=== PATIENT | male | born 1975 | race Caucasian/White ===

== ENCOUNTER 2022-10-18 13:08 | Emergency (ER) | payer OTHER ==
[2022-10-18 13:23] VITALS: BP 115/80; RESP 18; TEMP 97.7
[2022-10-18 14:15] LABS: Basophils # (A) 0.1 k/uL (0-0.2); Basophils % (A) 1 %; Eosinophils # (A) 0.3 k/uL (0-0.7); Eosinophils % (A) 6 %; HCT 49.6 % (39.0-53.0); HGB 16.3 gm/dL (13.0-17.5); Lymphocytes % (A) 33 %; MCH 26.8 pg (25.0-35.0); MCHC 32.9 g/dL (31.0-37.0); MCV 81.3 fL (80.0-100.0); Mean Platelet Volume 10.1; Monocytes # (A) 0.4 k/uL (0-1.0); Monocytes % (A) 7 %; Neutrophils # (A) 3.2 k/uL (1.3-7.7); Neutrophils % (A) 53 %; Platelet Count 193 k/uL (150-450); RDW 13.8 % (11.5-15.5)
[2022-10-18] MEDS ORDERED: SODIUM CHLORIDE 0.9% 1,000 ML IV ONE (14:55)
--- NOTE | 2022-10-18 14:56 | ED ---
General Adult HPI - General Chief complaint: Alcohol Stated complaint: Leg Cramps Time Seen by Provider: 10/18/22 13:11 Source: patient, EMS, RN notes reviewed, old records reviewed Mode of arrival: EMS Limitations: no limitations - History of Present Illness Initial comments: 46-year-old male presents from [facility] for evaluation of alcohol intoxic ation and leg cramps. Patient is quite intoxicated and unable to give a detailed history with states he's had history of alcoholism and has had alcohol withdrawal seizures in the past. - Related Data Allergies Allergy/AdvReac Type Severity Reaction Status Date / Time No Known Allergies Allergy Verified 10/18/22 13:44 Review of Systems ROS Statement: Those systems with pertinent positive or pertinent negative responses have been documented in the HPI. ROS Other: All systems not noted in ROS Statement are negative. Past Medical History Past Medical History: No Reported History Past Alcohol Use History: Heavy General Exam Limitations: no limitations General appearance: alert, appears intoxicated Head exam: Present: atraumatic, normocephalic Eye exam: Present: normal appearance, PERRL ENT exam: Present: mucous membranes dry Neck exam: Present: normal inspection. Absent: tenderness, meningismus Respiratory exam: Present: normal lung sounds bilaterally. Absent: respiratory distress, wheezes Cardiovascular Exam: Present: regular rate, normal rhythm GI/Abdominal exam: Present: soft. Absent: distended, tenderness, guarding Extremities exam: Present: normal inspection, normal capillary refill. Absent: pedal edema Neurological exam: Present: alert, CN II-XII intact. Absent: oriented X3, motor sensory deficit Psychiatric exam: Present: flat affect Skin exam: Present: warm, dry Course Vital Signs 10/18/22 13:16 Temperature 97.7 F Pulse Rate 95 Respiratory 18 Rate Blood Pressure 115/80 O2 Sat by Pulse 97 Oximetry - Reevaluation(s) Reevaluation #1: 10/18/22 16:20 he reassessed, he is still intoxicated but is able to give history. He's had 24-48 hours of right calf pain and was sent for ultrasound of the leg to rule out DVT. 70 is warm without swelling, no erythema. There is some calf tenderness, ultrasound is performed which is negative for DVT. Reevaluation #2: 10/18/22 16:52 Patient is eager for discharge, walking the hallways. He is discharged with [facility] staff. Medical Decision Making - Medical Decision Making Was pt. sent in by a medical professional or institution (SALMA Patel, TILTROTOR CREW CHIEF, urgent care, hospital, or fpc...) When possible be specific @ -No Did you speak to anyone other than the patient for history (EMS, parent, family, police, friend...)? What history was obtained from this source @ -No Did you review nursing and triage notes (agree or disagree)? Why? @ -I reviewed and agree with nursing and triage notes Were old charts reviewed (outside hosp., previous admission, EMS record, old EKG, old radiological studies, urgent care reports/EKG's, fpc records)? Report findings @ -No old charts were reviewed Differential Diagnosis (chest pain, altered mental status, abdominal pain women, abdominal pain men, vaginal bleeding, weakness, fever, dyspnea, syncope, headache, dizziness, GI bleed, back pain, seizure, CVA, palpatations, mental health, musculoskeletal)? @ -Pain in the right calf, rule out DVT, alcohol intoxication EKG interpreted by me (3pts min.). @ -As above X-rays interpreted by me (1pt min.). @ -None done CT interpreted by me (1pt min.). @ -None done U/S interpreted by me (1pt. min.). @ -Negative for DVT What testing was considered but not performed or refused? (CT, X-rays, U/S, labs)? Why? @ -None What meds were considered but not given or refused? Why? @ -None Did you discuss the management of the patient with other professionals (professionals i.e. SALMA Patel, TILTROTOR CREW CHIEF, lab, RT, psych nurse, social sciences research scientist, boxer operator, teacher, chief contract officer, case finisher)? Give summary @ -No Was smoking cessation discussed for >3mins.? @ -No Was critical care preformed (if so, how long)? @ -No Were there social determinants of health that impacted care today? How? (Homelessness, low income, unemployed, alcoholism, drug addiction, transportation, low edu. Level, literacy, decrease access to med. care, halfway, rehab)? @ -Alcoholism Was there de-escalation of care discussed even if they declined (Discuss DNR or withdrawal of care, Hospice)? DNR status @ -No What co-morbidities impacted this encounter? (DM, HTN, Smoking, COPD, CAD, Cancer, CVA, ARF, Chemo, Hep., AIDS, mental health diagnosis, sleep apnea, morbid obesity)? @ Alcoholism Was patient admitted / discharged? Hospital course, mention meds given and route, prescriptions, significant lab abnormalities, going to OR and other pertinent info. @46-year-old male with acute alcohol intoxication presenting from [facility] with right calf pain. Ultrasound performed which is negative for DVT. Patient is intoxicated with an alcohol level of 280. Otherwise his laboratory testing is unremarkable. He's given 2 mg of Ativan. The patient is very eager for discharge and wishes to return to [facility]. [facility] staffer contacted who are unable to diamond picker the patient. Undiagnosed new problem with uncertain prognosis? @ -No Drug Therapy requiring intensive monitoring for toxicity (Heparin, Nitro, Insulin, Cardizem)? @ -No Were any procedures done? @ -No Diagnosis/symptom? @ -Alcohol intoxication Acute, or Chronic, or Acute on Chronic? @ -Acute Uncomplicated (without systemic symptoms) or Complicated (systemic symptoms)? @ -Complicated Side effects of treatment? @ -No Exacerbation, Progression, or Severe Exacerbation? @ -No Poses a threat to life or bodily function? How? (Chest pain, USA, NC, pneumonia, PE, COPD, DKA, ARF, appy, cholecystitis, CVA, Diverticulitis, Homicidal, Suicidal, threat to staff... and all critical care pts) @ -Yes, alcohol abuse, alcohol withdrawal, seizure - Lab Data Result diagrams: 10/18/22 13:50 10/18/22 13:50 Lab Results 10/18/22 10/18/22 Range/Units 13:50 13:50 WBC 6.0 (3.8-10.6) k/uL RBC 6.10 H (4.30-5.90) m/uL Hgb 16.3 (13.0-17.5) gm/dL Hct 49.6 (39.0-53.0) % MCV 81.3 (80.0-100.0) fL MCH 26.8 (25.0-35.0) pg MCHC 32.9 (31.0-37.0) g/dL RDW 13.8 (11.5-15.5) % Plt Count 193 (150-450) k/uL MPV 10.1 Neutrophils % 53 % Lymphocytes % 33 % Monocytes % 7 % Eosinophils % 6 % Basophils % 1 % Neutrophils # 3.2 (1.3-7.7) k/uL Lymphocytes # 2.0 (1.0-4.8) k/uL Monocytes # 0.4 (0-1.0) k/uL Eosinophils # 0.3 (0-0.7) k/uL Basophils # 0.1 (0-0.2) k/uL Sodium 143 (137-145) mmol/L Potassium 4.2 (3.5-5.1) mmol/L Chloride 101 (98-107) mmol/L Carbon Dioxide 28 (22-30) mmol/L Anion Gap 14 mmol/L BUN 11 (9-20) mg/dL Creatinine 0.88 (0.66-1.25) mg/dL Est GFR (CKD-EPI)AfAm >90 (>60 ml/min/1.73 sqM) Est GFR (CKD-EPI)NonAf >90 (>60 ml/min/1.73 sqM) Glucose 292 H (74-99) mg/dL Calcium 8.5 (8.4-10.2) mg/dL Magnesium 2.3 (1.6-2.3) mg/dL Total Bilirubin 0.4 (0.2-1.3) mg/dL AST 36 (17-59) U/L ALT 37 (4-49) U/L Alkaline Phosphatase 80 (38-126) U/L Total Protein 6.8 (6.3-8.2) g/dL Albumin 4.4 (3.5-5.0) g/dL Serum Alcohol 289 H* mg/dL Disposition Clinical Impression: Alcoholic intoxication Disposition: HOME SELF-CARE Condition: Fair Instructions (If sedation given, give patient instructions): Alcohol Intoxication (ED) Is patient prescribed a controlled substance at d/c from ED?: No Referrals: None,Stated [Primary Care Provider] - 1-2 days Time of Disposition: 15:47
[2022-10-18 14:57] LABS: ALT 37 U/L (4-49); AST 36 U/L (17-59); African American GFR (CKD) >90 (>60 ml/min/1.73 sqM); Albumin 4.4 g/dL (3.5-5.0); Alkaline Phosphatase 80 U/L (38-126); Anion Gap 14 mmol/L; Blood Urea Nitrogen 11 mg/dL (9-20); Calcium 8.5 mg/dL (8.4-10.2); Carbon Dioxide 28 mmol/L (22-30); Chloride 101 mmol/L (98-107); Glucose 292 mg/dL (74-99); Magnesium 2.3 mg/dL (1.6-2.3); Non-African American GFR(CKD) >90 (>60 ml/min/1.73 sqM); Potassium 4.2 mmol/L (3.5-5.1); Sodium 143 mmol/L (137-145); Total Bilirubin 0.4 mg/dL (0.2-1.3); Total Protein 6.8 g/dL (6.3-8.2)
[2022-10-18 15:01] LABS: Alcohol 289 mg/dL
[2022-10-18] MEDS ORDERED: LORazepam 2 MG/ML INJ IV STA (16:15)
--- NOTE | 2022-10-18 16:56 | US ---
EXAMINATION TYPE: US venous doppler duplex LE RT DATE OF EXAM: 10/18/2022 4:16 PM COMPARISON: NONE CLINICAL INDICATION: Male, 46 years old with history of pain; h/o alcohol abuse, right calf cramping and thigh christianson, no h/o dvt SIDE PERFORMED: Right TECHNIQUE: The lower extremity deep venous system is examined utilizing real time linear array sonog travon with graded compression, doppler sonography and color-flow sonography. VESSELS IMAGED: Common Femoral Vein Deep Femoral Vein Greater Saphenous Vein * Femoral Vein Popliteal Vein Small Saphenous Vein * Proximal Calf Veins (* superficial vessels) Grayscale, color doppler, spectral doppler imaging performed of the deep veins of the right lower ext remity. There is normal flow, compressibility, vascular waveforms. Right Leg: Negative for DVT IMPRESSION: No deep venous thrombosis of the right lower extremity.
[2022-10-18 17:06] VITALS: PULSE 88
== END 2022-10-18 17:08 | disposition home or self-care (01) ==
LOC: EC 13:08
DX: F10.129 Alcohol abuse with intoxication, unspecified (principal)
CPT/HCPCS: 36415; 80053; 83735; 85025; 80320; 93971; 99285; 96374; 96361; J2060

== ENCOUNTER 2023-12-25 12:46 | Emergency (ER) | payer OTHER ==
[2023-12-25] MEDS: KETOROLAC 15 MG/ML 1 ML VIAL IVP STA ×2 (13:11→14:13)
[2023-12-25] MEDS: FAMOTIDINE 20 MG/2 ML VIAL IV STA (13:11)
[2023-12-25] MEDS: SODIUM CHLORIDE 0.9% 2,000 ML IV STA (13:14)
[2023-12-25 13:26] LABS: Basophils # (A) 0.1 k/uL (0-0.2); Basophils % (A) 1 %; Eosinophils # (A) 0.5 k/uL (0-0.7); Eosinophils % (A) 7 %; HGB 15.5 gm/dL (13.0-17.5); Lymphocytes # (A) 1.4 k/uL (1.0-4.8); Lymphocytes % (A) 21 %; MCHC 33.6 g/dL (31.0-37.0); MCV 86.1 fL (80.0-100.0); Mean Platelet Volume 12.1; Monocytes # (A) 0.5 k/uL (0-1.0); Monocytes % (A) 7 %; Neutrophils # (A) 4.1 k/uL (1.3-7.7); Neutrophils % (A) 62 %; Platelet Count 157 k/uL (150-450); RBC 5.34 m/uL (4.30-5.90); RDW 13.3 % (11.5-15.5); WBC 6.6 k/uL (3.8-10.6)
[2023-12-25 13:29] LABS: Appearance,Urine Clear (Clear); Bilirubin,Urine Negative (Negative); Blood,Urine Negative (Negative); Color,Urine Colorless; Glucose,Urine (UA) 4+ (Negative); Ketones,Urine Negative (Negative); Leukocyte Esterase,Urine Negative (Negative); Nitrite,Urine Negative (Negative); Protein,Urine Negative (Negative); Specific Gravity,Urine 1.031 (1.001-1.035); Urobilinogen,Urine <2.0 mg/dL (<2.0)
[2023-12-25 13:36] LABS: ALT 38 U/L (4-49); AST 37 U/L (17-59); African American GFR (CKD) >90 (>60 ml/min/1.73 sqM); Albumin 4.5 g/dL (3.5-5.0); Alkaline Phosphatase 65 U/L (38-126); Amylase 36 U/L (30-110); Anion Gap 10 mmol/L; Blood Urea Nitrogen 18 mg/dL (9-20); Calcium 9.7 mg/dL (8.4-10.2); Carbon Dioxide 22 mmol/L (22-30); Chloride 108 mmol/L (98-107); Glucose 97 mg/dL (74-99); Lipase 53 U/L (23-300); Non-African American GFR(CKD) >90 (>60 ml/min/1.73 sqM); Potassium 4.2 mmol/L (3.5-5.1); Sodium 140 mmol/L (137-145); Total Bilirubin 0.6 mg/dL (0.2-1.3); Total Protein 6.7 g/dL (6.3-8.2)
--- NOTE | 2023-12-25 14:10 | ED ---
Abdominal Pain HPI - General Chief Complaint: Abdominal Pain Stated Complaint: Abd pain Time Seen by Provider: 12/25/23 12:53 Source: patient, RN notes reviewed Mode of arrival: ambulatory Limitations: no limitations - History of Present Illness Initial Comments: 48-year-old male presents to the emergency department complaint of abdominal pain. Patient was sent in by [facility]. Patient states he was admitted for 5 days at [facility] for acute pancreatitis patient states he has chronic issues though because he has no colic he has been sober as he has been rehab since discharge from the hospital he still complains of mid abdominal pain charmaine ent had prior CAT scan. - Related Data Previous Rx's Medication Instructions Recorded Famotidine [Pepcid] 20 mg PO BID #28 tablet 12/25/23 Ketorolac [Toradol] 10 mg PO Q8HR #15 tab 12/25/23 Ondansetron Odt [Zofran Odt] 4 mg PO Q8HR PRN #10 tab 12/25/23 Allergies Allergy/AdvReac Type Severity Reaction Status Date / Time No Known Allergies Allergy Verified 12/25/23 12:52 Review of Systems ROS Statement: Those systems with pertinent positive or pertinent negative responses have been documented in the HPI. ROS Other: All systems not noted in ROS Statement are negative. Past Medical History Past Medical History: No Reported History Past Surgical History: Cholecystectomy Past Psychological History: No Psychological Hx Reported Smoking Status: Current every day smoker Past Alcohol Use History: Heavy Past Drug Use History: None Reported General Exam Limitations: no limitations General appearance: alert, in no apparent distress Head exam: Present: atraumatic, normocephalic, normal inspection Eye exam: Present: normal appearance, PERRL, EOMI. Absent: scleral icterus, conjunctival injection, periorbital swelling Respiratory exam: Present: normal lung sounds bilaterally. Absent: respiratory distress, wheezes, rales, rhonchi, stridor Cardiovascular Exam: Present: regular rate, normal rhythm, normal heart sounds. Absent: systolic murmur, diastolic murmur, rubs, gallop, clicks GI/Abdominal exam: Present: soft, tenderness, normal bowel sounds. Absent: distended, guarding, rebound, rigid Back exam: Absent: CVA tenderness (R), CVA tenderness (L) Neurological exam: Present: alert Skin exam: Present: warm, dry, intact, normal color. Absent: rash Course Vital Signs 12/25/23 12:48 Temperature 98.3 F Pulse Rate 86 Respiratory 18 Rate Blood Pressure 132/88 O2 Sat by Pulse 95 Oximetry Medical Decision Making - Medical Decision Making Was pt. sent in by a medical professional or institution (, SALMA, PLATFORM SUPERVISOR, urgent care, hospital, or [facility]...) When possible be specific @ -[facility] Did you speak to anyone other than the patient for history (EMS, parent, family, police, friend...)? What history was obtained from this source @ -No Did you review nursing and triage notes (agree or disagree)? Why? @ -I reviewed and agree with nursing and triage notes Were old charts reviewed (outside hosp., previous admission, EMS record, old EKG, old radiological studies, urgent care reports/EKG's, [facility] records)? Report findings @ -No old charts were reviewed Differential Diagnosis (chest pain, altered mental status, abdominal pain women, abdominal pain men, vaginal bleeding, weakness, fever, dyspnea, syncope, headache, dizziness, GI bleed, back pain, seizure, CVA, palpatations, mental health, musculoskeletal)? @ -Differential Abdominal Pain Men: Appendicitis, cholecystitis, diverticulosis, ischemic bowel, pancreatitis, hepatitis, UTI, gastroenteritis, AAA, incarcerated hernia, bowel obstruction, constipation, inflammatory bowel, hepatitis, peptic ulcer disease, splenic infarction, perforated viscus, testicular torsion, this is not meant to be an all-inclusive list EKG interpreted by me (3pts min.). @ -None none X-rays interpreted by me (1pt min.). @ -None done CT interpreted by me (1pt min.). @ -None done U/S interpreted by me (1pt. min.). @ -None done What testing was considered but not performed or refused? (CT, X-rays, U/S, labs)? Why? @ -None What meds were considered but not given or refused? Why? @ -None Did you discuss the management of the patient with other professionals (professionals i.e. SALMA Patel, PLATFORM SUPERVISOR, lab, RT, psych nurse, social media marketing manager, instructor business education, teacher, commissioned police officer, director of casework services)? Give summary @ -No Was smoking cessation discussed for >3mins.? @ -No Was critical care preformed (if so, how long)? @ -No Were there social determinants of health that impacted care today? How? (Homelessness, low income, unemployed, alcoholism, drug addiction, transportation, low edu. Level, literacy, decrease access to med. care, correction, rehab)? @ -No Was there de-escalation of care discussed even if they declined (Discuss DNR or withdrawal of care, Hospice)? DNR status @ -No What co-morbidities impacted this encounter? (DM, HTN, Smoking, COPD, CAD, Cancer, CVA, ARF, Chemo, Hep., AIDS, mental health diagnosis, sleep apnea, morbid obesity)? @ -Diabetes, pancreatitis hypertension Was patient admitted / discharged? Hospital course, mention meds given and route, prescriptions, significant lab abnormalities, going to OR and other pertinent info. @ -Discharge patient laboratory studies unremarkable. Patient has known chronic pancreatitis. Patient's will be discharged back to [facility] with close follow-up return parameters nandini. Undiagnosed new problem with uncertain prognosis? @ -No Drug Therapy requiring intensive monitoring for toxicity (Heparin, Nitro, Insulin, Cardizem)? @ -No Were any procedures done? @ -No Diagnosis/symptom? @ -Abdominal pain, chronic pancreatitis Acute, or Chronic, or Acute on Chronic? @ -Acute, chronic Uncomplicated (without systemic symptoms) or Complicated (systemic symptoms)? @ -uncomplicated Side effects of treatment? @ -No Exacerbation, Progression, or Severe Exacerbation? @ -No Poses a threat to life or bodily function? How? (Chest pain, USA, NC, pneumonia, PE, COPD, DKA, ARF, appy, cholecystitis, CVA, Diverticulitis, Homicidal, Suicidal, threat to staff... and all critical care pts) @ -No - Lab Data Result diagrams: 12/25/23 13:06 12/25/23 13:06 Lab Results 12/25/23 12/25/23 12/25/23 Range/Units 13:06 13:06 13:06 WBC 6.6 (3.8-10.6) k/uL RBC 5.34 (4.30-5.90) m/uL Hgb 15.5 (13.0-17.5) gm/dL Hct 46.0 (39.0-53.0) % MCV 86.1 (80.0-100.0) fL MCH 29.0 (25.0-35.0) pg MCHC 33.6 (31.0-37.0) g/dL RDW 13.3 (11.5-15.5) % Plt Count 157 (150-450) k/uL MPV 12.1 Neutrophils % 62 % Lymphocytes % 21 % Monocytes % 7 % Eosinophils % 7 % Basophils % 1 % Neutrophils # 4.1 (1.3-7.7) k/uL Lymphocytes # 1.4 (1.0-4.8) k/uL Monocytes # 0.5 (0-1.0) k/uL Eosinophils # 0.5 (0-0.7) k/uL Basophils # 0.1 (0-0.2) k/uL Manual Slide Review Performed Large Platelets Present RBC Morphology Normal Sodium 140 (137-145) mmol/L Potassium 4.2 (3.5-5.1) mmol/L Chloride 108 H (98-107) mmol/L Carbon Dioxide 22 (22-30) mmol/L Anion Gap 10 mmol/L BUN 18 (9-20) mg/dL Creatinine 0.69 (0.66-1.25) mg/dL Est GFR (CKD-EPI)AfAm >90 (>60 ml/min/1.73 sqM) Est GFR (CKD-EPI)NonAf >90 (>60 ml/min/1.73 sqM) Glucose 97 (74-99) mg/dL Plasma Lactic Acid Osman (0.7-2.0) mmol/L Calcium 9.7 (8.4-10.2) mg/dL Total Bilirubin 0.6 (0.2-1.3) mg/dL AST 37 (17-59) U/L ALT 38 (4-49) U/L Alkaline Phosphatase 65 (38-126) U/L Total Protein 6.7 (6.3-8.2) g/dL Albumin 4.5 (3.5-5.0) g/dL Amylase 36 (30-110) U/L Lipase 53 (23-300) U/L Urine Color Colorless Urine Appearance Clear (Clear) Urine pH 5.0 (5.0-8.0) Ur Specific Mitchell 1.031 (1.001-1.035) Urine Protein Negative (Negative) Urine Glucose (UA) 4+ H (Negative) Urine Ketones Negative (Negative) Urine Blood Negative (Negative) Urine Nitrite Negative (Negative) Urine Bilirubin Negative (Negative) Urine Urobilinogen <2.0 (<2.0) mg/dL Ur Leukocyte Esterase Negative (Negative) 12/25/23 Range/Units 13:06 WBC (3.8-10.6) k/uL RBC (4.30-5.90) m/uL Hgb (13.0-17.5) gm/dL Hct (39.0-53.0) % MCV (80.0-100.0) fL MCH (25.0-35.0) pg MCHC (31.0-37.0) g/dL RDW (11.5-15.5) % Plt Count (150-450) k/uL MPV Neutrophils % % Lymphocytes % % Monocytes % % Eosinophils % % Basophils % % Neutrophils # (1.3-7.7) k/uL Lymphocytes # (1.0-4.8) k/uL Monocytes # (0-1.0) k/uL Eosinophils # (0-0.7) k/uL Basophils # (0-0.2) k/uL Manual Slide Review Large Platelets RBC Morphology Sodium (137-145) mmol/L Potassium (3.5-5.1) mmol/L Chloride (98-107) mmol/L Carbon Dioxide (22-30) mmol/L Anion Gap mmol/L BUN (9-20) mg/dL Creatinine (0.66-1.25) mg/dL Est GFR (CKD-EPI)AfAm (>60 ml/min/1.73 sqM) Est GFR (CKD-EPI)NonAf (>60 ml/min/1.73 sqM) Glucose (74-99) mg/dL Plasma Lactic Acid Osman 1.8 (0.7-2.0) mmol/L Calcium (8.4-10.2) mg/dL Total Bilirubin (0.2-1.3) mg/dL AST (17-59) U/L ALT (4-49) U/L Alkaline Phosphatase (38-126) U/L Total Protein (6.3-8.2) g/dL Albumin (3.5-5.0) g/dL Amylase (30-110) U/L Lipase (23-300) U/L Urine Color Urine Appearance (Clear) Urine pH (5.0-8.0) Ur Specific Mitchell (1.001-1.035) Urine Protein (Negative) Urine Glucose (UA) (Negative) Urine Ketones (Negative) Urine Blood (Negative) Urine Nitrite (Negative) Urine Bilirubin (Negative) Urine Urobilinogen (<2.0) mg/dL Ur Leukocyte Esterase (Negative) Disposition Clinical Impression: Abdominal pain, Chronic pancreatitis Disposition: HOME SELF-CARE Condition: Stable Instructions (If sedation given, give patient instructions): Abdominal Pain (ED) Additional Instructions: Please return to the Emergency Department if symptoms worsen or any other concerns. Prescriptions: Famotidine [Pepcid] 20 mg PO BID #28 tablet Ketorolac [Toradol] 10 mg PO Q8HR #15 tab Ondansetron Odt [Zofran Odt] 4 mg PO Q8HR PRN #10 tab PRN Reason: Nausea Is patient prescribed a controlled substance at d/c from ED?: No Referrals: Nonstaff,Physician [Primary Care Provider] - 1-2 days Time of Disposition: 14:49
[2023-12-25 14:34] LABS: Large Platelets Present; RBC Morphology Normal
[2023-12-25 15:20] VITALS: BP 136/84; PULSE 72; RESP 16; TEMP 98.2
== END 2023-12-25 15:15 | disposition home or self-care (01) ==
LOC: EC 12:46
DX: K86.1 Other chronic pancreatitis (principal); F17.200 Nicotine dependence, unspecified, uncomplicated; E11.9 Type 2 diabetes mellitus without complications; I10 Essential (primary) hypertension
CPT/HCPCS: 36415; 80053; 82150; 83605; 83690; 85025; 81003; 99284; 96374; 96375; 96376; 96361 ×2; J3490; J1885

== ENCOUNTER 2024-03-01 15:56 | Observation (INO) | payer OTHER ==
[2024-03-01 16:13] VITALS: RESP 18
--- NOTE | 2024-03-01 16:19 | ED ---
Abdominal Pain HPI - General Chief Complaint: Abdominal Pain Stated Complaint: abd pain Time Seen by Provider: 03/01/24 16:17 Source: patient, RN notes reviewed Mode of arrival: ambulatory Limitations: no limitations - History of Present Illness Initial Comments: 48-year-old male presenting to the ER with a chief complaint abdominal pain. Patient sent by [facility]. Patient checked into [facility] today due to alcoholism. He states his last drink was around 11 AM. He typically drinks 1/5 and a half a day plus some beers. He does report a history of seizures and DTs with withdrawal. He reports he also has a history of chronic pancreatitis. States for the past day he has been experiencing sharp persistent 10 out of 10 left-sided abdominal pain with radiation to his back. He states he has been nauseous and vomiting as well. Reports recent diarrhea. No fevers or chills. Patient denies any cough, congestion, headache, chest pain, shortness of breath, urinary complaints or peripheral edema. - Related Data Home Medications Medication Instructions Recorded Confirmed Albuterol Inhaler [Ventolin Hfa 2 puff INHALATION RT-Q4H PRN 03/01/24 03/01/24 Inhaler] Atorvastatin Calcium [Lipitor] 40 mg PO HS 03/01/24 03/01/24 Cetirizine HCl 10 mg PO DAILY 03/01/24 03/01/24 Empagliflozin [Jardiance] 10 mg PO DAILY 03/01/24 03/01/24 Escitalopram [Lexapro] 10 mg PO DAILY 03/01/24 03/01/24 Insulin Glargine,Hum.rec.anlog 20 units SQ DAILY 03/01/24 03/01/24 [Lantus Solostar Pen] Insulin Lispro [humaLOG Kwikpen] 5 unit SQ AC-TID 03/01/24 03/01/24 Insulin Lispro [humaLOG Kwikpen] See Protocol SQ AC-TID 03/01/24 03/01/24 Pantoprazole Sodium [Protonix] 20 mg PO DAILY 03/01/24 03/01/24 hydrOXYzine HCL [Atarax] 50 mg PO QID PRN 03/01/24 03/01/24 metFORMIN HCL 1,000 mg PO BID 03/01/24 03/01/24 traZODone HCL [Desyrel] 100 mg PO HS PRN 03/01/24 03/01/24 Allergies Allergy/AdvReac Type Severity Reaction Status Date / Time No Known Allergies Allergy Verified 03/01/24 18:40 Review of Systems ROS Statement: Those systems with pertinent positive or pertinent negative responses have been documented in the HPI. ROS Other: All systems not noted in ROS Statement are negative. Past Medical History Past Medical History: No Reported History Past Surgical History: Cholecystectomy Past Psychological History: No Psychological Hx Reported Smoking Status: Current every day smoker Past Alcohol Use History: Heavy Past Drug Use History: None Reported General Exam - General Exam Comments Initial Comments: Visual Physical Exam Vital signs reviewed General: Well-appearing, nontoxic, no acute distress. Head: Normocephalic, atraumatic Eyes: PERRLA, EOMI ENT: Airway patent Chest: Nonlabored breathing Skin: No visual rash, normal skin tone Neuro: Alert and oriented 3 Musculoskeletal: No gross abnormalities Limitations: no limitations General appearance: alert, in no apparent distress Respiratory exam: Present: normal lung sounds bilaterally. Absent: respiratory distress, wheezes, rales, rhonchi, stridor Cardiovascular Exam: Present: regular rate, normal rhythm, normal heart sounds. Absent: systolic murmur, diastolic murmur, rubs, gallop, clicks GI/Abdominal exam: Present: soft, tenderness (Left upper quadrant), normal bowel sounds Neurological exam: Present: alert, oriented X3, CN II-XII intact Skin exam: Present: warm, dry, intact, normal color. Absent: rash Course Vital Signs 03/01/24 03/01/24 03/01/24 16:10 19:27 20:46 Temperature 98.2 F 97.9 F Pulse Rate 96 77 81 Pulse Rate [ Pulse Oximetery ] Respiratory 18 18 18 Rate Blood Pressure 121/86 113/72 119/79 Blood Pressure [Right Arm Supine] O2 Sat by Pulse 97 96 95 Oximetry 03/01/24 20:50 Temperature 97.3 F L Pulse Rate Pulse Rate [ 75 Pulse Oximetery ] Respiratory 18 Rate Blood Pressure Blood Pressure 117/75 [Right Arm Supine] O2 Sat by Pulse 96 Oximetry - Reevaluation(s) Reevaluation #1: 03/01/24 19:50 Case discussed with on-call vascular, Dr. Staples. She advised against blood thinner use this time. She will reevaluate patient as he will be admitted for alcohol withdrawal. 03/01/24 20:17 Case discussed with sound physician, Dr. Haynes who accepts admission Medical Decision Making - Medical Decision Making I performed the quick note portion of this chart. Electronically signed by Nava Locke PA-C Was pt. sent in by a medical professional or institution ([facility]AL[facility] Patel, D[employer]ATE [employer]ER, urgent care, hospital, or fdc...) When possible be specific @ -Patient sent by [facility] for evaluation of abdominal pain. Did you speak to anyone other than the patient for history (EMS, parent, family, police, friend...)? What history was obtained from this source @ -No Did you review nursing and triage notes (agree or disagree)? Why? @ -I reviewed and agree with nursing and triage notes Were old charts reviewed (outside hosp., previous admission, EMS record, old EKG, old radiological studies, urgent care reports/EKG's, fdc records)? Report findings @ -No old charts were reviewed Differential Diagnosis (chest pain, altered mental status, abdominal pain women, abdominal pain men, vaginal bleeding, weakness, fever, dyspnea, syncope, headache, dizziness, GI bleed, back pain, seizure, CVA, palpatations, mental health, musculoskeletal)? @ -Differential Abdominal Pain Men: Appendicitis, cholecystitis, diverticulosis, ischemic bowel, pancreatitis, hepatitis, UTI, gastroenteritis, AAA, incarcerated hernia, bowel obstruction, constipation, inflammatory bowel, hepatitis, peptic ulcer disease, splenic infarction, perforated viscus, testicular torsion, this is not meant to be an all-inclusive list EKG interpreted by me (3pts min.). @ -None done X-rays interpreted by me (1pt min.). @ -None done CT interpreted by me (1pt min.). @ -CT abdomen pelvis showing a partially thrombosed 2.8 cm splenic artery aneurysm. U/S interpreted by me (1pt. min.). @ -None done What testing was considered but not performed or refused? (CT, X-rays, U/S, la bs)? Why? @ -None What meds were considered but not given or refused? Why? @ -None Did you discuss the management of the patient with other professionals (professionals i.e. SALMA Patel, DUAL RATE DEALER, lab, RT, psych nurse, social sciences lecturer, dairy chemist, teacher, aboriginal liaison officer, case mgr)? Give summary @ -Case discussed with on-call vascular, Dr. Staples. She advised against blood thinning medications at this time. She will evaluate patient when he is admitted. Admission discussed with [facility] physician, Dr. Haynes. Was smoking cessation discussed for >3mins.? @ -No Was critical care preformed (if so, how long)? @ -No Were there social determinants of health that impacted care today? How? (Homelessness, low income, unemployed, alcoholism, drug addiction, transportation, low edu. Level, literacy, decrease access to med. care, senior living, rehab)? @ -Patient is currently checking into rehabilitation for alcoholism Was there de-escalation of care discussed even if they declined (Discuss DNR or withdrawal of care, Hospice)? DNR status @ -No What co-morbidities impacted this encounter? (DM, HTN, Smoking, COPD, CAD, Cancer, CVA, ARF, Chemo, Hep., AIDS, mental health diagnosis, sleep apnea, morbid obesity)? @ -Alcoholism, chronic pancreatitis Was patient admitted / discharged? Hospital course, mention meds given and route, prescriptions, significant lab abnormalities, going to OR and other pertinent info. @ -Admitted. 48-year-old male presented to the ER with a chief complaint of abdominal pain. Patient sent by [facility] for evaluation. Patient checked into [facility] for alcoholism. Patient does report a history of DTs and seizures with withdrawal. Last drink around 11 AM. History and physical exam completed. Vitals within normal limits. Patient originally seen by myself as a quick note. Upon my thorough examination patient is having left upper quadrant abdominal tenderness with normal bowel sounds. No rebound or guarding. Patient is anxious with a mild tremor on exam. CBC unremarkable. CMP showing hyperglycemia at 162 otherwise unremarkable. Amylase 38, lipase 43. Serum alcohol less than 10. CT abdomen pelvis showing a partially thrombosed 2.8 cm splenic artery aneurysm. CT findings discussed with on-call vascular Dr. Staples who advised against blood thinning medications at this time. She states she will evaluate patient on admission. CIWA 11. CIWA protocol initiated. Patient received symptomatic control in the ER. Admission considered and discussed with ruben physician, Dr. Haynes, for alcohol withdrawal. Upon reevaluation, patient resting comfortably on stretcher no signs of acute distress. Patient agreeable for admission. Patient admitted in stable condition for further evaluation and treatment. Case discussed with the attending, Dr. Galdamez. Undiagnosed new problem with uncertain prognosis? @ -No Drug Therapy requiring intensive monitoring for toxicity (Heparin, Nitro, Insulin, Cardizem)? @ -No Were any procedures done? @ -No Diagnosis/symptom? @ -Alcohol withdrawl/Splenic artery aneursym Acute, or Chronic, or Acute on Chronic? @ -Acute Uncomplicated (without systemic symptoms) or Complicated (systemic symptoms)? @ -Complicated Side effects of treatment? @ -No Exacerbation, Progression, or Severe Exacerbation? @ -No Poses a threat to life or bodily function? How? (Chest pain, [place], [place], pneumonia, PE, COPD, DKA, ARF, appy, cholecystitis, CVA, Diverticulitis, Homicidal, Suicidal, threat to staff... and all critical care pts) @ -Yes, alcohol withdrawal can lead to seizures which can be life-threatening. - Lab Data Result diagrams: 03/01/24 16:58 03/01/24 16:58 Lab Results 03/01/24 03/01/24 03/01/24 Range/Units 16:58 16:58 16:58 WBC 6.7 (3.8-10.6) k/uL RBC 6.07 H (4.30-5.90) m/uL Hgb 16.6 (13.0-17.5) gm/dL Hct 50.1 (39.0-53.0) % MCV 82.6 (80.0-100.0) fL MCH 27.4 (25.0-35.0) pg MCHC 33.2 (31.0-37.0) g/dL RDW 12.5 (11.5-15.5) % Plt Count 156 (150-450) k/uL MPV 10.6 Neutrophils % 61 % Lymphocytes % 24 % Monocytes % 4 % Eosinophils % 10 % Basophils % 1 % Neutrophils # 4.0 (1.3-7.7) k/uL Lymphocytes # 1.6 (1.0-4.8) k/uL Monocytes # 0.3 (0-1.0) k/uL Eosinophils # 0.7 (0-0.7) k/uL Basophils # 0.0 (0-0.2) k/uL Sodium 139 (137-145) mmol/L Potassium 3.9 (3.5-5.1) mmol/L Chloride 105 (98-107) mmol/L Carbon Dioxide 22 (22-30) mmol/L Anion Gap 12 mmol/L BUN 14 (9-20) mg/dL Creatinine 0.77 (0.66-1.25) mg/dL Est GFR (CKD-EPI)AfAm >90 (>60 ml/min/1.73 sqM) Est GFR (CKD-EPI)NonAf >90 (>60 ml/min/1.73 sqM) Glucose 162 H (74-99) mg/dL Plasma Lactic Acid Osman 1.2 (0.7-2.0) mmol/L Calcium 9.7 (8.4-10.2) mg/dL Total Bilirubin 0.8 (0.2-1.3) mg/dL AST 18 (17-59) U/L ALT 23 (4-49) U/L Alkaline Phosphatase 86 (38-126) U/L Total Protein 7.1 (6.3-8.2) g/dL Albumin 4.7 (3.5-5.0) g/dL Amylase 38 (30-110) U/L Lipase 43 (23-300) U/L Serum Alcohol <10 mg/dL - Radiology Data Radiology results: report reviewed, image reviewed Disposition Clinical Impression: Alcohol abuse with withdrawal, Splenic artery aneurysm Disposition: ADMITTED IP TO THIS [facility] Condition: Stable Time of Disposition: 20:20
[2024-03-01 17:11] LABS: Basophils % (A) 1 %; Eosinophils # (A) 0.7 k/uL (0-0.7); Eosinophils % (A) 10 %; HCT 50.1 % (39.0-53.0); HGB 16.6 gm/dL (13.0-17.5); Lymphocytes # (A) 1.6 k/uL (1.0-4.8); Lymphocytes % (A) 24 %; MCH 27.4 pg (25.0-35.0); MCHC 33.2 g/dL (31.0-37.0); MCV 82.6 fL (80.0-100.0); Mean Platelet Volume 10.6; Monocytes # (A) 0.3 k/uL (0-1.0); Monocytes % (A) 4 %; Neutrophils % (A) 61 %; Platelet Count 156 k/uL (150-450); RBC 6.07 m/uL (4.30-5.90); RDW 12.5 % (11.5-15.5); WBC 6.7 k/uL (3.8-10.6)
[2024-03-01 17:22] LABS: ALT 23 U/L (4-49); AST 18 U/L (17-59); African American GFR (CKD) >90 (>60 ml/min/1.73 sqM); Albumin 4.7 g/dL (3.5-5.0); Alcohol <10 mg/dL; Alkaline Phosphatase 86 U/L (38-126); Amylase 38 U/L (30-110); Anion Gap 12 mmol/L; Blood Urea Nitrogen 14 mg/dL (9-20); Calcium 9.7 mg/dL (8.4-10.2); Carbon Dioxide 22 mmol/L (22-30); Chloride 105 mmol/L (98-107); Glucose 162 mg/dL (74-99); Lipase 43 U/L (23-300); Non-African American GFR(CKD) >90 (>60 ml/min/1.73 sqM); Potassium 3.9 mmol/L (3.5-5.1); Sodium 139 mmol/L (137-145); Total Bilirubin 0.8 mg/dL (0.2-1.3); Total Protein 7.1 g/dL (6.3-8.2)
[2024-03-01] MEDS: ONDANSETRON 4 MG/2 ML VIAL IVP STA (18:45)
[2024-03-01] MEDS: SODIUM CHLORIDE 0.9% 1,000 ML IV STA (18:45)
[2024-03-01] MEDS: THIAMINE 100 MG/ML 2 ML VIAL IM STA (18:46)
[2024-03-01] MEDS: KETOROLAC 15 MG/ML 1 ML VIAL IVP STA (18:46)
--- NOTE | 2024-03-01 19:35 | CT ---
EXAMINATION TYPE: CT abdomen pelvis w con CT DLP: 1324.3 mGycm, Automated exposure control for dose reduction was used. DATE OF EXAM: 03/01/2024 7:22 PM COMPARISON: None. CLINICAL INDICATION:Male, 48 years old with history of right sided abd pain hx pncreatitis; right jon ed abd pain hx pncreatitis TECHNIQUE: Axial CT of the abdomen and pelvis. Sagittal and coronal reformats were created on a [employer] workstation. Contrast used:100 ml mL of Isovue 300 with IV Contrast, (none if empty) Oral contrast used: without Oral Contrast (none if empty) FINDINGS: LOWER CHEST: Unremarkable ABDOMEN LIVER: Unremarkable GALLBLADDER AND BILE DUCTS: The gallbladder is not visualized. PANCREAS: Pancreatic parenchyma is mildly atrophic. Adjacent to the splenic artery there is a bilobed 2.8 cm rounded structure with peripheral calcification and internal low-attenuation SPLEEN: Unremarkable. ADRENAL GLANDS: Unremarkable. KIDNEYS AND URETERS: No evidence of hydronephrosis or renal calculus. The ureters are unremarkable. PELVIS BLADDER: Unremarkable REPRODUCTIVE: Unremarkable. ABDOMEN & PELVIS STOMACH AND BOWEL: Stomach and duodenum are unremarkable. No evidence of bowel obstruction. PERITONEUM/RETROPERITONEUM: No evidence of pneumoperitoneum or free fluid. VASCULATURE: No evidence of aortic aneurysm. MUSCULOSKELETAL: No acute osseous abnormalities LYMPH NODES: No gross evidence for lymphadenopathy. SOFT TISSUE/ABDOMINAL WALL: Unremarkable IMPRESSION: Partially thrombosed 2.8 cm splenic artery aneurysm, likely sequela of prior pancreatitis. Recommend further evaluation with vascular surgery consult. [facility] Charo Lopez, , 03/01/2024 7:33 PM
[2024-03-01] MEDS: ACETAMINOPHEN TAB 500 MG TAB PO STA (20:04)
[2024-03-01] MEDS: LORazepam 2 MG/ML INJ IV PRN (20:05)
[2024-03-01] MEDS ORDERED: ONDANSETRON 4 MG/2 ML VIAL IVP PRN (20:16)
[2024-03-01] MEDS ORDERED: NALOXONE 0.4 MG/ML 1 ML VIAL IV PRN (20:16)
[2024-03-01] MEDS ORDERED: MORPHINE SULFATE 4 MG/ML SYRINGE IV PRN (20:16)
[2024-03-01] MEDS: SODIUM CHLORIDE 0.9% 1,000 ML IV SCH (20:48)
[2024-03-01] MEDS: MORPHINE SULFATE 4 MG/ML SYRINGE IVP STA (20:49)
[2024-03-01] MEDS: MORPHINE SULFATE 4 MG/ML SYRINGE IM STA (20:54)
[2024-03-01 21:21] LABS: Appearance,Urine Clear (Clear); Bilirubin,Urine Negative (Negative); Blood,Urine Negative (Negative); Color,Urine Light Yellow; Glucose,Urine (UA) 4+ (Negative); Ketones,Urine 1+ (Negative); Leukocyte Esterase,Urine Negative (Negative); Nitrite,Urine Negative (Negative); PH, Urine 5.5 (5.0-8.0); Protein,Urine Negative (Negative); Specific Gravity,Urine >1.050 (1.001-1.035); Urobilinogen,Urine <2.0 mg/dL (<2.0)
[2024-03-01] MEDS: HYDROmorphone 0.5 MG/0.5 ML SYRINGE IVP STA (22:26)
[2024-03-02] MEDS: LORazepam 2 MG/ML INJ IV PRN (00:27)
[2024-03-02 00:52] LABS: Glucose,Whole Blood 267 mg/dL (70-110)
[2024-03-02] MEDS ORDERED: ALBUTEROL NEBULIZED 2.5 MG/3 ML INHALATION PRN (01:34)
[2024-03-02] MEDS ORDERED: MAG HYDROX/AL HYDROX/SIMETH 30 ML CUP PO PRN (01:36)
[2024-03-02] MEDS ORDERED: DEXTROSE 50% SYRINGE 50 ML IVP PRN ×2 (01:39)
[2024-03-02] MEDS ORDERED: IPRATROPIUM-ALBUTEROL 3 ML NEB INHALATION PRN (01:41)
[2024-03-02] MEDS: PANTOPRAZOLE 40 MG/10 ML VIAL IVP ONE (01:53)
[2024-03-02] MEDS: chlordiazePOXIDE 25 MG CAP PO STA (01:53)
--- NOTE | 2024-03-02 01:53 | P.HPIM ---
History of Present Illness H&P Date: 03/01/24 Chief Complaint: Abdominal pain 48-year-old male with diabetes mellitus, mild persistent asthma, alcohol abuse Patient coming in from [facility] due to severe epigastric abdominal pain he claims that he has chronic abdominal pain for which he drinks and helps with his pain he admits to alcohol dependence with history of severe alcohol withdrawal including DTs and hallucinations and withdrawal seizures. He has been having this pain for long time however today it was getting worse his last drink was 11 in the morning he decided to go to [facility] to help him with alcohol withdrawal however due to ongoing epigastric abdominal pain the sentiment here for evaluation he reports that the pain has gotten worse today no associated nausea vomiting GI bleeding diarrhea no fevers chills shortness of breath or chest pain Patient denies any vomiting or hematemesis. Denies any su GI bleeding however he does report occasional melena. Patient admits to tobacco smoking and heavy alcohol denies any illicit drugs review of systems Pertinent positives as noted in HPI. All other systems were reviewed and are negative on exam Constitutional: No acute distress, conversant, pleasant Eyes: Anicteric sclerae, moist conjunctiva, Pupils equal round reactive to light ENMT: NC/AT Oropharynx clear, no erythema, or exudates Neck: Supple, no masses, or JVD No carotid bruits No thyromegaly Lungs: Clear to auscultation Clear to percussion Normal respiratory effort, no accessory muscle use Cardiovascular: Heart regular in rate and rhythm, No murmurs, gallops, or rubs No peripheral edema Abdominal: Soft Tenderness to palpation over the epigastric region, no guarding, rebound or rigidity Abdomen moving with respiration Normoactive bowel sounds Extremities: No digital cyanosis No clubbing Pedal pulses intact and symmetrical Radial pulses intact and symmetrical No calf tenderness Psychiatric: Alert and oriented to person, place and time Appropriate affect fair judgement Neuro Muscles Strength 5/5 in all 4 extremities Sensation to light touch grossly present throughout Cranial nerves II-XII grossly intact Past Medical History Past Medical History: No Reported History Past Surgical History: Cholecystectomy Past Psychological History: No Psychological Hx Reported Smoking Status: Current every day smoker Past Alcohol Use History: Heavy Past Drug Use History: None Reported Medications and Allergies Home Medications Medication Instructions Recorded Confirmed Type Albuterol Inhaler [Ventolin Hfa 2 puff INHALATION RT-Q4H PRN 03/01/24 03/01/24 History Inhaler] Atorvastatin Calcium [Lipitor] 40 mg PO HS 03/01/24 03/01/24 History Cetirizine HCl 10 mg PO DAILY 03/01/24 03/01/24 History Empagliflozin [Jardiance] 10 mg PO DAILY 03/01/24 03/01/24 History Escitalopram [Lexapro] 10 mg PO DAILY 03/01/24 03/01/24 History Insulin Glargine,Hum.rec.anlog 20 units SQ DAILY 03/01/24 03/01/24 History [Lantus Solostar Pen] Insulin Lispro [humaLOG Kwikpen] 5 unit SQ AC-TID 03/01/24 03/01/24 History Insulin Lispro [humaLOG Kwikpen] See Protocol SQ AC-TID 03/01/24 03/01/24 History Pantoprazole Sodium [Protonix] 20 mg PO DAILY 03/01/24 03/01/24 History hydrOXYzine HCL [Atarax] 50 mg PO QID PRN 03/01/24 03/01/24 History metFORMIN HCL 1,000 mg PO BID 03/01/24 03/01/24 History traZODone HCL [Desyrel] 100 mg PO HS PRN 03/01/24 03/01/24 History Allergies Allergy/AdvReac Type Severity Reaction Status Date / Time No Known Allergies Allergy Verified 03/01/24 18:40 Physical Exam Vitals: Vital Signs Temp Pulse Resp BP Pulse Ox 03/01/24 19:27 97.9 F 77 18 113/72 96 03/01/24 16:10 98.2 F 96 18 121/86 97 Intake and Output 03/01/24 03/01/24 03/01/24 06:59 14:59 22:59 Other: Weight 97.522 kg Results CBC & Chem 7: 03/01/24 16:58 03/01/24 16:58 Labs: Abnormal Lab Results - Last 24 Hours (Table) 03/01/24 03/01/24 Range/Units 16:58 16:58 RBC 6.07 H (4.30-5.90) m/uL Glucose 162 H (74-99) mg/dL Assessment and Plan Assessment: 48-year-old male with alcohol dependence, mild persistent asthma, diabetes mellitus coming in with epigastric abdominal pain I discussed case with ED doctor and accepted the admission for alcohol withdrawal syndrome, partially thrombosed splenic artery aneurysm, with anticipated length of stay more than 2 midnights Alcohol withdrawal syndrome Benzo per CIWA scale Thiamine 100 mg p.o. daily IV fluid hydration normal saline 100 cc/h Withdrawal precautions Seizure precautions Partially thrombosed splenic artery aneurysm incidental finding on CT scan of the abdomen Await vascular surgery evaluation no immediate recommendations for heparinization or anticoagulation Mild persistent asthma compensated Continue with DuoNebs as needed 4 times daily Continue with albuterol as needed for shortness of breath Epigastric abdominal pain suspected acute gastritis rule out peptic ulcer disease GI consultation Protonix 80 mg IV push once Continue with Protonix 40 mg p.o. twice daily Maalox 30 g 4 times daily as needed Dilaudid 0.5 mg IV push every 3 hours as needed Zofran 4 mg every 8 hours as needed for nausea vomiting Continue with IV fluid hydration normal saline as above Lipase unremarkable 43 Renal function unremarkable 139 sodium potassium 3.9 BUN 14 creatinine 0.7 Lactic acid 1.2 unremarkable White count 6.7 and hemoglobin 16.6 both unremarkable Diabetes mellitus Continue with insulin sliding scale Continue with basal insulin daily 20 units Levemir Full code DVT prophylaxis Lovenox 40 mg subcu daily
[2024-03-02] MEDS: HYDROmorphone 0.5 MG/0.5 ML SYRINGE IVP PRN (01:54)
[2024-03-02 06:19] LABS: Glucose,Whole Blood 160 mg/dL (70-110)
[2024-03-02] MEDS: INSULIN ASPART (NovoLOG) 100 UNIT/ML VIAL SQ SCH ×2 (06:59)
[2024-03-02] MEDS: PANTOPRAZOLE 40 MG/10 ML VIAL IVP SCH (08:12)
[2024-03-02] MEDS: THIAMINE 100 MG TAB PO SCH (08:13)
[2024-03-02] MEDS: MULTIVITAMINS, THERA 1 EACH TAB PO SCH (08:13)
[2024-03-02] MEDS: ENOXAPARIN 40 MG/0.4 ML SYRINGE SQ SCH (08:13)
[2024-03-02] MEDS: INSULIN DETEMIR (LEVEMIR) 100 UNIT/ML SYR SQ SCH (09:59)
--- NOTE | 2024-03-02 10:40 | P.PN ---
Subjective Progress Note Date: 03/02/24 Hospital course Patient is a 48-year-old male with a past medical history of diabetes mellitus, mild persistent asthma, alcohol abuse who presents from [place] due to severe epigastric abdominal pain. In the ED patient had CT abdomen pelvis that showed thrombosed splenic artery aneurysm. Patient was admitted to the medicine service to be evaluated by gastroenterology as well as vascular surgery. Patient was seen this morning. He was somnolent when I walked in. He was easily arousable. He is AO x 3. Patient appeared comfortable but complaining of abdominal pain. Physical exam General examination - Alert and Oriented 3 in NAD Heart - + S1S2 no murmurs Lungs - Clear to auscultation Abdomen soft NT ND +ve BS Extremities - No edema BODY MAN - Moving all 4 extremities spontaneously Psych - Calm and cooperative Assessment and plan Alcohol withdrawal syndrome Continue with CIWA protocol Patient will return back to [facility] once stable. Abdominal pain Suspect this is due to gastroenteritis secondary to alcohol abuse Continue with Protonix 40 mg twice daily GI consult Partial thrombosed splenic artery aneurysm This is an incidental finding on the CT abdomen Doubt this is causing patient's pain Vascular surgery consult Diabetes mellitus Sliding scale insulin Continue Levemir 20 units DVT prophylaxis: Lovenox Objective - Vital Signs Vital signs: Vital Signs Temp 97.3 F L 03/01/24 20:50 Pulse 76 03/02/24 04:45 Resp 18 03/02/24 04:45 BP 114/76 03/02/24 04:45 Pulse Ox 95 03/02/24 04:45 FiO2 Intake & Output 03/01/24 03/02/24 03/02/24 18:59 06:59 18:59 Intake Total 120 Balance 120 Weight 97.522 kg 100.2 kg Intake: Oral 120 - Labs CBC & Chem 7: 03/01/24 16:58 03/01/24 16:58 Labs: Abnormal Lab Results - Last 24 Hours (Table) 03/01/24 03/01/24 03/01/24 Range/Units 16:58 16:58 21:03 RBC 6.07 H (4.30-5.90) m/uL Glucose 162 H (74-99) mg/dL POC Glucose (mg/dL) (70-110) mg/dL Ur Specific [place] >1.050 H (1.001-1.035) Urine Glucose (UA) 4+ H (Negative) Urine Ketones 1+ H (Negative) 03/02/24 03/02/24 Range/Units 00:51 06:15 RBC (4.30-5.90) m/uL Glucose (74-99) mg/dL POC Glucose (mg/dL) 267 H 160 H (70-110) mg/dL Ur Specific [place] (1.001-1.035) Urine Glucose (UA) (Negative) Urine Ketones (Negative)
[2024-03-02 11:16] LABS: Glucose,Whole Blood 178 mg/dL (70-110)
[2024-03-02 11:36] LABS: African American GFR (CKD) >90 (>60 ml/min/1.73 sqM); Anion Gap 9 mmol/L; Blood Urea Nitrogen 14 mg/dL (9-20); Calcium 8.2 mg/dL (8.4-10.2); Carbon Dioxide 20 mmol/L (22-30); Chloride 106 mmol/L (98-107); Glucose 201 mg/dL (74-99); Non-African American GFR(CKD) >90 (>60 ml/min/1.73 sqM); Potassium 3.6 mmol/L (3.5-5.1); Sodium 135 mmol/L (137-145)
[2024-03-02] MEDS: IBUPROFEN 400 MG TAB PO PRN (12:12)
--- NOTE | 2024-03-02 12:13 | P.GSCN ---
History of Present Illness Consult date: 03/02/24 Reason for Consult: Splenic artery aneurysm Requesting physician: Karen Locke History of present illness: This is a pleasant 48-year-old male who was sent into the emergency room from [place] because he had been drinking and was drunk when he arrived. Patient also is been reporting abdominal pain in the right upper quadrant and left upper quadrant with the left upper quadrant radiating to his back. She den ies any previous medical history he is an every day smoker and drinks about 1/5 or more a day. States he has been drinking since age 14 and has been in and out of rehab for the last 10 years. He is currently homeless from the [facility]. 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 He is currently very drowsy and kind of dozing off in and out of interview ICU was recently medicat ed. He states he does have some abdominal pain at this time both in the upper right and upper left quadrant. As well as some nausea. States that he has a history of pancreatitis and has had hospitalizations at least a dozen times. Labs are unremarkable. He had a CT of the abdomen pelvis reporting partially thrombosed 2.8 cm splenic artery aneurysm likely sequela of prior pancreatitis. Review of Systems A 14 point review systems was completed all pertinent positives and negatives as stated in the HPI. Past Medical History Past Medical History: No Reported History Additional Past Medical History / Comment(s): chronic parcreatitis History of Any Multi-Drug Resistant Organisms: None Reported Past Surgical History: Cholecystectomy Past Anesthesia/Blood Transfusion Reactions: No Reported Reaction Past Psychological History: No Psychological Hx Reported Smoking Status: Current every day smoker Past Alcohol Use History: Heavy Past Drug Use History: None Reported Medications and Allergies Home Medications Medication Instructions Recorded Confirmed Type Albuterol Inhaler [Ventolin Hfa 2 puff INHALATION RT-Q4H PRN 03/01/24 03/01/24 History Inhaler] Atorvastatin Calcium [Lipitor] 40 mg PO HS 03/01/24 03/01/24 History Cetirizine HCl 10 mg PO DAILY 03/01/24 03/01/24 History Empagliflozin [Jardiance] 10 mg PO DAILY 03/01/24 03/01/24 History Escitalopram [Lexapro] 10 mg PO DAILY 03/01/24 03/01/24 History Insulin Glargine,Hum.rec.anlog 20 units SQ DAILY 03/01/24 03/01/24 History [Lantus Solostar Pen] Insulin Lispro [humaLOG Kwikpen] 5 unit SQ AC-TID 03/01/24 03/01/24 History Insulin Lispro [humaLOG Kwikpen] See Protocol SQ AC-TID 03/01/24 03/01/24 History Pantoprazole Sodium [Protonix] 20 mg PO DAILY 03/01/24 03/01/24 History hydrOXYzine HCL [Atarax] 50 mg PO QID PRN 03/01/24 03/01/24 History metFORMIN HCL 1,000 mg PO BID 03/01/24 03/01/24 History traZODone HCL [Desyrel] 100 mg PO HS PRN 03/01/24 03/01/24 History Allergies Allergy/AdvReac Type Severity Reaction Status Date / Time No Known Allergies Allergy Verified 03/01/24 18:40 Surgical - Exam Vital Signs Temp Pulse Resp BP Pulse Ox 98.2 F 96 18 121/86 97 03/01/24 16:10 03/01/24 16:10 03/01/24 16:10 03/01/24 16:10 03/01/24 16:10 General appearance: The patient is alert, oriented, appears in no acute distress. HET: Head is normocephalic and atraumatic. Pupils are equal and reactive. Neck: Supple. Heart: Regular. Lungs: Equal expansion, normal respiratory effort. Abdomen: Soft, mild right upper quadrant and left upper quadrant tenderness, nondistended. Extremities: Normal skin color and turgor. Palpable radial and DP pulses Neurological: No focal deficits. Strength and sensation are grossly intact. Results - Labs 03/01/24 16:58 03/02/24 10:19 Abnormal Lab Results - Last 24 Hours (Table) 03/01/24 03/01/24 03/01/24 Range/Units 16:58 16:58 21:03 RBC 6.07 H (4.30-5.90) m/uL Glucose 162 H (74-99) mg/dL POC Glucose (mg/dL) (70-110) mg/dL Ur Specific [place] >1.050 H (1.001-1.035) Urine Glucose (UA) 4+ H (Negative) Urine Ketones 1+ H (Negative) 03/02/24 03/02/24 Range/Units 00:51 06:15 RBC (4.30-5.90) m/uL Glucose (74-99) mg/dL POC Glucose (mg/dL) 267 H 160 H (70-110) mg/dL Ur Specific [place] (1.001-1.035) Urine Glucose (UA) (Negative) Urine Ketones (Negative) Diabetes panel 03/01/24 Range/Units 16:58 Sodium 139 (137-145) mmol/L Potassium 3.9 (3.5-5.1) mmol/L Chloride 105 (98-107) mmol/L Carbon Dioxide 22 (22-30) mmol/L BUN 14 (9-20) mg/dL Creatinine 0.77 (0.66-1.25) mg/dL Glucose 162 H (74-99) mg/dL Calcium 9.7 (8.4-10.2) mg/dL AST 18 (17-59) U/L ALT 23 (4-49) U/L Alkaline Phosphatase 86 (38-126) U/L Total Protein 7.1 (6.3-8.2) g/dL Albumin 4.7 (3.5-5.0) g/dL Calcium panel 03/01/24 Range/Units 16:58 Calcium 9.7 (8.4-10.2) mg/dL Albumin 4.7 (3.5-5.0) g/dL Pituitary panel 03/01/24 Range/Units 16:58 Sodium 139 (137-145) mmol/L Potassium 3.9 (3.5-5.1) mmol/L Chloride 105 (98-107) mmol/L Carbon Dioxide 22 (22-30) mmol/L BUN 14 (9-20) mg/dL Creatinine 0.77 (0.66-1.25) mg/dL Glucose 162 H (74-99) mg/dL Calcium 9.7 (8.4-10.2) mg/dL Adrenal panel 03/01/24 Range/Units 16:58 Sodium 139 (137-145) mmol/L Potassium 3.9 (3.5-5.1) mmol/L Chloride 105 (98-107) mmol/L Carbon Dioxide 22 (22-30) mmol/L BUN 14 (9-20) mg/dL Creatinine 0.77 (0.66-1.25) mg/dL Glucose 162 H (74-99) mg/dL Calcium 9.7 (8.4-10.2) mg/dL Total Bilirubin 0.8 (0.2-1.3) mg/dL AST 18 (17-59) U/L ALT 23 (4-49) U/L Alkaline Phosphatase 86 (38-126) U/L Total Protein 7.1 (6.3-8.2) g/dL Albumin 4.7 (3.5-5.0) g/dL Assessment and Plan Assessment: 1. 2.8 cm splenic artery aneurysm seen on CAT scan 2. Upper abdominal pain 3. Alcohol abuse, daily drinker fifth or more a day 4. Nicotine dependence 5. Alcohol withdrawal Plan: 1. CT angiogram abdomen pelvis ordered 2. Monitor for withdrawal symptoms 3. Recommend CIWA protocol 4. Recommend smoking cessation 5. Recommend alcohol abstinence 6. Further recommendations forthcoming Thank you for this consultation, we will continue to follow The impression and plan of care has been dictated as directed. Dr. Staples I performed a history and examination of this patient, discussed the same with the dictator. I agree with the dictator's note ,documented as a scribe. Any additional findings or plans will be noted.
--- NOTE | 2024-03-02 12:31 | P.CONS ---
History of Present Illness - Reason for Consult Consult date: 03/02/24 Epigastric pain Requesting physician: Karen Locke - Chief Complaint Abdominal pain - History of Present Illness This is a pleasant 48-year-old male who was sent into the emergency room from [place] because he had been drinking and was drunk when he arrived. Shubham seaman also is been reporting abdominal pain in the right upper quadrant and left upper quadrant with the left upper quadrant radiating to his back. She denies any previous medical history he is an every day smoker and drinks about 1/5 or more a day. States he has been drinking since age 14 and has been in and out of rehab for the last 10 years. He is currently homeless from the [facility]. 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 He is currently very drowsy and kind of dozing off in and out of interview ICU was recently medicated. He states he does have some abdominal pain at this time both in the upper right and upper left quadrant. As well as some nausea. States that he has a history of pancreatitis and has had hospitalizations at least a dozen times. Labs are unremarkable. He had a CT of the abdomen pelvis reporting partially thrombosed 2.8 cm splenic artery aneurysm likely sequela of prior pancreatitis. Gastroenterology consulted for epigastric pain. Review of Systems REVIEW OF SYSTEMS: CARDIOPULMONARY: No chest pain or shortness of breath. Gastrointestinal: Abdominal pain reported in right and left upper quadrant. Nausea with episode of vomiting. No hematemesis, coffee-ground emesis. No rectal bleeding, or melena. GENITOURINARY: No dysuria or hematuria. MUSCULOSKELETAL: Reports normal range of motion. SKIN: No rashes. No jaundice. ENDOCRINE: No chills, fevers. No excessive weight gain or loss. No polydipsia or polyuria. PSYCHIATRIC: Unremarkable. NEUROLOGY: No change in mental status. Denies dizziness, headache. ENT: Vision unremarkable. CONSTITUTIONAL: No recent weight loss. No fever, chills, night sweats. Past Medical History Past Medical History: No Reported History Additional Past Medical History / Comment(s): chronic parcreatitis History of Any Multi-Drug Resistant Organisms: None Reported Past Surgical History: Cholecystectomy Past Anesthesia/Blood Transfusion Reactions: No Reported Reaction Past Psychological History: No Psychological Hx Reported Smoking Status: Current every day smoker Past Alcohol Use History: Heavy Past Drug Use History: None Reported Medications and Allergies Home Medications Medication Instructions Recorded Confirmed Type Albuterol Inhaler [Ventolin Hfa 2 puff INHALATION RT-Q4H PRN 03/01/24 03/01/24 History Inhaler] Atorvastatin Calcium [Lipitor] 40 mg PO HS 03/01/24 03/01/24 History Cetirizine HCl 10 mg PO DAILY 03/01/24 03/01/24 History Empagliflozin [Jardiance] 10 mg PO DAILY 03/01/24 03/01/24 History Escitalopram [Lexapro] 10 mg PO DAILY 03/01/24 03/01/24 History Insulin Glargine,Hum.rec.anlog 20 units SQ DAILY 03/01/24 03/01/24 History [Lantus Solostar Pen] Insulin Lispro [humaLOG Kwikpen] 5 unit SQ AC-TID 03/01/24 03/01/24 History Insulin Lispro [humaLOG Kwikpen] See Protocol SQ AC-TID 03/01/24 03/01/24 History Pantoprazole Sodium [Protonix] 20 mg PO DAILY 03/01/24 03/01/24 History hydrOXYzine HCL [Atarax] 50 mg PO QID PRN 03/01/24 03/01/24 History metFORMIN HCL 1,000 mg PO BID 03/01/24 03/01/24 History traZODone HCL [Desyrel] 100 mg PO HS PRN 03/01/24 03/01/24 History Allergies Allergy/AdvReac Type Severity Reaction Status Date / Time No Known Allergies Allergy Verified 03/01/24 18:40 Physical Exam Vitals: Vital Signs Temp Pulse Pulse Resp BP BP Pulse Ox 03/02/24 04:45 76 18 114/76 95 03/02/24 00:25 75 18 114/72 95 03/01/24 20:50 97.3 F L 75 18 117/75 96 03/01/24 20:46 81 18 119/79 95 03/01/24 19:27 97.9 F 77 18 113/72 96 03/01/24 16:10 98.2 F 96 18 121/86 97 Intake and Output 03/01/24 03/02/24 03/02/24 22:59 06:59 14:59 Intake Total 120 Balance 120 Intake: Oral 120 Other: Weight 97.522 kg 100.2 kg General appearance: The patient is alert, oriented, appears in no acute distress. HET: Head is normocephalic and atraumatic. Conjunctiva pink. Sclera anicteric. Neck: Supple without lymphadenopathy. Trachea midline. Heart: Regular. Lungs: Equal expansion, normal respiratory effort. Abdomen: Soft, right upper quadrant and left upper quadrant tenderness, nondistended. Skin: No rashes. No jaundice. Extremities: Normal skin color and turgor. No pedal edema. Neurological: No focal deficits. Alert and oriented x3. Results CBC & Chem 7: 03/01/24 16:58 03/02/24 10:19 Labs: Abnormal Lab Results - Last 24 Hours (Table) 03/01/24 03/01/24 03/01/24 Range/Units 16:58 16:58 21:03 RBC 6.07 H (4.30-5.90) m/uL Glucose 162 H (74-99) mg/dL POC Glucose (mg/dL) (70-110) mg/dL Ur Specific [place] >1.050 H (1.001-1.035) Urine Glucose (UA) 4+ H (Negative) Urine Ketones 1+ H (Negative) 03/02/24 03/02/24 Range/Units 00:51 06:15 RBC (4.30-5.90) m/uL Glucose (74-99) mg/dL POC Glucose (mg/dL) 267 H 160 H (70-110) mg/dL Ur Specific [place] (1.001-1.035) Urine Glucose (UA) (Negative) Urine Ketones (Negative) Comments: CT of the abdomen pelvis reporting partially thrombosed 2.8 cm splenic artery aneurysm likely sequela of prior pancreatitis. Assessment and Plan (1) Abdominal pain Narrative/Plan: 48-year-old male sent over from [place] because he had admitted to drinking alcohol in the morning prior to going in their facility. He is also with complaints of abdominal pain in the right upper quadrant and left upper quadrant left upper quadrant radiating to the back. He has had multiple episodes in the past of pancreatitis, he may have some acute on chronic pancreatitis. Also found splenic artery aneurysm for which vascular surgery is following. Patient is going through withdrawals and is on [facility] protocol. Will treat sympto matically for now and continue to monitor. No plans on endoscopic evaluation at this time. Current Visit: Yes Status: Acute Code(s): R10.9 - UNSPECIFIED ABDOMINAL PAIN SNOMED Code(s): 28289962 (2) History of pancreatitis Current Visit: Yes Status: Acute Code(s): Z87.19 - PERSONAL HISTORY OF OTHER DISEASES OF THE DIGESTIVE SYSTEM SNOMED Code(s): 31273552571012 (3) Alcohol abuse with withdrawal Current Visit: Yes Status: Acute Code(s): F10.139 - ALCOHOL ABUSE WITH WITHD DORIS, UNSPECIFIED SNOMED Code(s): 959219898 (4) Splenic artery aneurysm Current Visit: Yes Status: Acute Code(s): I72.8 - ANEURYSM OF OTHER SPECIFIED ARTERIES SNOMED Code(s): 97735247 Plan: 1. Symptomatic and supportive care 2. CT angiogram abdomen pelvis ordered per vascular surgery 3. Monitor for withdrawal symptoms 4. Recommend CIWA protocol 5. Recommend smoking cessation 6. Recommend alcohol abstinence 7. Protonix 40 mg daily 8. Diet as tolerated 9. No plans on endoscopic evaluation at this time Thank you for this consultation, we will continue to follow Dr. Tess Staley I agree with the dictator's note, documented as a scribe by Jesusita Benson.
[2024-03-02] MEDS: ACETAMINOPHEN TAB 325 MG TAB PO PRN (13:57)
[2024-03-02 15:21] LABS: Glucose,Whole Blood 55 mg/dL (70-110)
[2024-03-02 15:33] LABS: Glucose,Whole Blood 66 mg/dL (70-110)
[2024-03-02 15:48] LABS: Glucose,Whole Blood 101 mg/dL (70-110)
[2024-03-02 16:27] LABS: Glucose,Whole Blood 117 mg/dL (70-110)
[2024-03-02 19:59] LABS: Glucose,Whole Blood 176 mg/dL (70-110)
[2024-03-02 21:54] VITALS: TEMP 97.6
[2024-03-03 05:52] LABS: Glucose,Whole Blood 164 mg/dL (70-110)
[2024-03-03 06:16] VITALS: BP 105/67; PULSE 71
--- NOTE | 2024-03-03 08:12 | P.PN ---
Subjective Progress Note Date: 03/03/24 Principal diagnosis: Abdominal pain This is a pleasant 48-year-old male who was sent into the emergency room from [place] because he had been drinking and was drunk when he arrived. Patient also is been reporting abdominal pain in the right upper quadrant and left upper quadrant with the left upper quadrant radiating to his back. She denies any previous medical history he is an every day smoker and drinks about 1/5 or more a day. States he has been drinking since age 14 and has been in and out of rehab for the last 10 years. He is currently homeless from the [facility]. 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 He is currently very drowsy and kind of dozing off in and out of interview ICU was recently medicated. He states he does have some abdominal pain at this time both in the upper right and upper left quadrant. As well as some nausea. States that he has a history of pancreatitis and has had hospitalizations at least a dozen times. Labs are unremarkable. He had a CT of the abdomen pelvis reporting partially thrombosed 2.8 cm splenic artery aneurysm likely sequela of prior pancreatitis. Gastroenterology consulted for epigastric pain. 03/03/2024 Patient seen and examined today as a follow-up. He is less shaky. States abdom inal pain is improving. No nausea or vomiting. He has been tolerating clear liquid diet. CT angiogram abdomen pelvis pending. Objective - Vital Signs Vital signs: Vital Signs Temp 97.6 F 03/02/24 20:30 Pulse 71 03/03/24 04:00 Resp 18 03/03/24 04:00 BP 105/67 03/03/24 04:00 Pulse Ox 95 03/03/24 04:00 FiO2 Intake & Output 03/02/24 03/02/24 03/03/24 06:59 18:59 06:59 Intake Total 1760 Balance 1760 Weight 100.2 kg 100.3 kg Intake: Intake, IV Titration 500 Amount Sodium Chloride 0.9% 1, 500 000 ml @ 100 mls/hr IV . Q10H [facility] Rx#:[id number] Oral 1260 Other: # Voids 2 2 # Bowel Movements 0 - Exam General appearance: The patient is alert, oriented, appears in no acute distress. HET: Head is normocephalic and atraumatic. Conjunctiva pink. Sclera anicteric. Neck: Supple without lymphadenopathy. Abdomen: Soft, nontender, nondistended with bowel sounds. No guarding or rigidity. Extremities: Normal skin color and turgor. No pedal edema Skin: No rashes, no jaundice Neurological: No focal deficits. Alert and oriented. - Labs CBC & Chem 7: 03/01/24 16:58 03/02/24 10:19 Labs: Abnormal Lab Results - Last 24 Hours (Table) 03/01/24 03/02/24 03/02/24 Range/Units 16:58 10:19 11:13 Sodium 135 L (137-145) mmol/L Carbon Dioxide 20 L (22-30) mmol/L Glucose 201 H (74-99) mg/dL POC Glucose (mg/dL) 178 H (70-110) mg/dL Hemoglobin A1c 11.1 H (<=6.0) % Calcium 8.2 L (8.4-10.2) mg/dL 03/02/24 03/02/24 03/02/24 Range/Units 15:20 15:32 16:22 Sodium (137-145) mmol/L Carbon Dioxide (22-30) mmol/L Glucose (74-99) mg/dL POC Glucose (mg/dL) 55 L 66 L 117 H (70-110) mg/dL Hemoglobin A1c (<=6.0) % Calcium (8.4-10.2) mg/dL 03/02/24 03/03/24 Range/Units 19:58 05:50 Sodium (137-145) mmol/L Carbon Dioxide (22-30) mmol/L Glucose (74-99) mg/dL POC Glucose (mg/dL) 176 H 164 H (70-110) mg/dL Hemoglobin A1c (<=6.0) % Calcium (8.4-10.2) mg/dL Assessment and Plan (1) Abdominal pain Narrative/Plan: 48-year-old male sent over from [place] because he had admitted to drinking alcohol in the morning prior to going in their facility. He is also with complaints of abdominal pain in the right upper quadrant and left upper quadrant left upper quadrant radiating to the back. He has had multiple episodes in the past of pancreatitis, he may have some acute on chronic pancreatitis. Also found splenic artery aneurysm for which vascular surgery is following. Patient is going through withdrawals and is on [facility] protocol. Will treat symptomatically for now and continue to monitor. Abdominal pain improving. Again likely secondary to pancreatitis. No plans on endoscopic evaluation at this time. Current Visit: Yes Status: Acute Code(s): R10.9 - UNSPECIFIED ABDOMINAL PAIN SNOMED Code(s): 36090139 (2) Alcohol abuse with withdrawal Current Visit: Yes Status: Acute Code(s): F10.139 - ALCOHOL ABUSE WITH WITHDRAWAL, UNSPECIFIED SNOMED Code(s): 550842401 (3) History of pancreatitis Current Visit: Yes Status: Acute Code(s): Z87.19 - PERSONAL HISTORY OF OTHER DISEASES OF THE DIGESTIVE SYSTEM SNOMED Code(s): 88248819443759 (4) Splenic artery aneurysm Current Visit: Yes Status: Acute Code(s): I72.8 - ANEURYSM OF OTHER SPECIFIED ARTERIES SNOMED Code(s): 37162371 Plan: 1. Symptomatic and supportive care 2. CT angiogram abdomen pelvis ordered per vascular surgery. Continue with their recommendations. 3. Monitor for withdrawal symptoms 4. Recommend CIWA protocol 5. Recommend smoking cessation 6. Recommend alcohol abstinence 7. Protonix 40 mg daily 8. Diet as tolerated 9. No plans on endoscopic evaluation 10. Recommend return back to [place] for rehab at discharge Thank you for this consultation, we will sign off at this time. Dr. Tess Staley I agree with the dictator's note, documented as a scribe by Jesusita Benson.
--- NOTE | 2024-03-03 08:15 | P.PN ---
Subjective Progress Note Date: 03/03/24 Principal diagnosis: Splenic artery aneurysm Patient seen and examined today as a follow-up. Remains on [facility] protocol. Does seem a little less shaky today more alert. Abdominal pain improving. CT angiogram abdomen pelvis pending radiology read. Objective - Vital Signs Vital signs: Vital Signs Temp 97.6 F 03/02/24 20:30 Pulse 71 03/03/24 04:00 Resp 18 03/03/24 04:00 BP 105/67 03/03/24 04:00 Pulse Ox 95 03/03/24 04:00 FiO2 Intake & Output 03/02/24 03/03/24 03/03/24 18:59 06:59 18:59 Intake Total 1760 Balance 1760 Weight 100.3 kg Intake: Intake, IV Titration 500 Amount Sodium Chloride 0.9% 1, 500 000 ml @ 100 mls/hr IV . Q10H [facility] Rx#:[id number] Oral 1260 Other: # Voids 2 2 # Bowel Movements 0 - Exam General appearance: The patient is alert, oriented, appears in no acute distress. HET: Head is normocephalic and atraumatic. Conjunctiva pink. Sclera anicteric. Neck: Supple without lymphadenopathy. Abdomen: Soft, nontender, nondistended with bowel sounds. No guarding or rigidity. Extremities: Normal skin color and turgor. No pedal edema Skin: No rashes, no jaundice Neurological: No focal deficits. Alert and oriented. - Labs CBC & Chem 7: 03/01/24 16:58 03/02/24 10:19 Labs: Abnormal Lab Results - Last 24 Hours (Table) 03/01/24 03/02/24 03/02/24 Range/Units 16:58 10:19 11:13 Sodium 135 L (137-145) mmol/L Carbon Dioxide 20 L (22-30) mmol/L Glucose 201 H (74-99) mg/dL POC Glucose (mg/dL) 178 H (70-110) mg/dL Hemoglobin A1c 11.1 H (<=6.0) % Calcium 8.2 L (8.4-10.2) mg/dL 03/02/24 03/02/24 03/02/24 Range/Units 15:20 15:32 16:22 Sodium (137-145) mmol/L Carbon Dioxide (22-30) mmol/L Glucose (74-99) mg/dL POC Glucose (mg/dL) 55 L 66 L 117 H (70-110) mg/dL Hemoglobin A1c (<=6.0) % Calcium (8.4-10.2) mg/dL 03/02/24 03/03/24 Range/Units 19:58 05:50 Sodium (137-145) mmol/L Carbon Dioxide (22-30) mmol/L Glucose (74-99) mg/dL POC Glucose (mg/dL) 176 H 164 H (70-110) mg/dL Hemoglobin A1c (<=6.0) % Calcium (8.4-10.2) mg/dL Assessment and Plan Assessment: 1. 2.8 cm splenic artery aneurysm seen on CAT scan 2. Upper abdominal pain 3. Alcohol abuse, daily drinker fifth or more a day 4. Nicotine dependence 5. Alcohol withdrawal Plan: CTA abdomen pelvis completed and reviewed there is no evidence of splenic artery aneurysm or active bleed. Spoke with radiologist appears to be sequela from pancreatitis. No further vascular surgical workup indicated. No vascular surgical intervention indicated. Recommend smoking cessation, alcohol abstinenc e continue CIWA protocol and recommend discharge to [place] rehab. Thank you for this consultation, we will sign off at this time. The impression and plan of care has been dictated as directed. I performed a history and examination of this patient, discussed the same with the dictator. I agree with the dictator's note ,documented as a scribe. Any additional findings or plans will be noted.
--- NOTE | 2024-03-03 09:29 | CT ---
EXAMINATION TYPE: CT noncontrast abdomen and pelvis. CT angiogram abdomen and pelvis. CT DLP: 1770.4 mGycm, Automated exposure control for dose reduction was used. DATE OF EXAM: 03/02/2024 8:38 PM COMPARISON:03/01/2024 CLINICAL INDICATION: Male, 48 years old with history of Abdominal pain, evaluate splenic artery aneur ysm; PHH, Abdominal pain, evaluate splenic artery aneurysm. TECHNIQUE: Noncontrast CT abdomen pelvis followed by CT angiogram. Multiple thin slice sub-millimeter images were obtained after administration of contrast. 3-D reconstructed images and maximum intensi ty projection images were obtained. CT angio abdomen pelvis CT Contrast: Contrast used:100 ml mL of Isovue 370 with IV Contrast, Oral contrast used: without Oral Contrast None FINDINGS: CTA Abdomen and pelvis: The abdominal aorta does not demonstrate aneurysmal dilatation. Area of norman rn near the left upper quadrant immediately abuts the splenic vein and not the splenic artery. Area m easures similarly to immediate prior at 28 x 21 mm. No enhancement is seen within this lesion has per ipheral calcification. Hounsfield units centrally of 19 suggests fluid. No evidence for aneurysm. Spl enic artery is patent. The origins of the superior mesenteric artery, renal arteries, inferior mesent alethea artery, and celiac axis are patent. The iliac vessels are normal in morphology LOWER CHEST: No evidence of focal consolidation, pneumothorax or pleural effusion. LIVER: Unremarkable GALLBLADDER AND BILE DUCTS: Unremarkable. PANCREAS: There is small pancreas. Fluid collection abuts the pancreatic tail as described above thou ght originally be possibly a vascular structure. SPLEEN: Unremarkable. ADRENAL GLANDS: Unremarkable. KIDNEYS AND URETERS: No evidence of hydronephrosis or renal calculus. The ureters are unremarkable. PELVIS BLADDER: Unremarkable REPRODUCTIVE: Unremarkable. ABDOMEN & PELVIS STOMACH AND BOWEL: No evidence of bowel obstruction. Mild wall thickening of the sigmoid colon. PERITONEUM: No evidence of pneumoperitoneum or free fluid. VASCULATURE: No evidence of aortic aneurysm. MUSCULOSKELETAL: No acute osseous abnormalities LYMPH NODES: No gross evidence for lymphadenopathy. SOFT TISSUE/ABDOMINAL WALL: Unremarkable IMPRESSION: 1. Area of concern near the left upper quadrant immediately abuts the splenic vein and not the splen ic artery. Area measures similarly to immediate prior at 28 x 21 mm. No enhancement is seen within th is lesion has peripheral calcification. Hounsfield units centrally of 19 suggests fluid. Findings fav or a sequela prior pancreatitis. 2. Evidence suggesting colitis of the sigmoid colon. [facility], , 03/03/2024 9:26 AM
[2024-03-03] MEDS: LORazepam 2 MG/ML INJ IV PRN (09:30)
--- NOTE | 2024-03-03 10:42 | P.DS ---
Providers Date of admission: 03/01/24 19:42 Attending physician: Lucille Haynes MD Consults: 03/01/24 20:16 Consult Physician Urgent Consulting Provider: Jennifer Staples Consult Reason/Comments: splenic artery aneursym Do you want consulting provider notified?: Already Contacted 03/02/24 01:36 Consult Physician Routine Consulting Provider: Roxana Staley Consult Reason/Comments: epigastric pain Do you want consulting provider notified?: Yes, Notify in am Primary care physician: Physician Nonstaff Hospital Course: Discharge Diagnosis: Alcohol withdrawal syndrome Abdominal pain likely due to gastritis from alcohol abuse CT findings consistent with prior pancreatitis sequela Diabetes mellitus Hospital Course: Patient is a 48-year-old male with a past medical history of diabetes mellitus, mild persistent asthma, alcohol abuse who presents from [place] due to severe epigastric abdominal pain. In the ED patient had CT abdomen pelvis that showed thrombosed splenic artery aneurysm. Patient was admitted to the medicine service to be evaluated by gastroenterology as well as vascular surgery. Vascular surgery ordered a CTA abdomen that showed findings consistent with sequela from prior pancreatitis. No further vascular surgery workup was indicated and no surgical intervention. Vascular surgery recommended to stop smoking. Patient also seen by gastroenterology who recommended no GI workup. At the time of discharge patient did complain of abdominal pain however he appeared comfortable and his physical exam was benign. Patient deemed stable for discharge home. Patient will return back to [facility] for treatment of his alcohol withdrawal. The most likely etiology of his abdominal pain is gastritis from alcohol abuse. Patient was started on Protonix. 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 Patient Condition at Discharge: Stable Plan - Discharge Summary Discharge Rx Participant: No New Discharge Prescriptions: No Action traZODone HCL [Desyrel] 100 mg PO HS PRN PRN Reason: SLEEP Empagliflozin [Jardiance] 10 mg PO DAILY metFORMIN HCL 1,000 mg PO BID Pantoprazole Sodium [Protonix] 20 mg PO DAILY Escitalopram [Lexapro] 10 mg PO DAILY Albuterol Inhaler [Ventolin Hfa Inhaler] 2 puff INHALATION RT-Q4H PRN PRN Reason: Shortness Of Breath Insulin Lispro [humaLOG Kwikpen] 5 unit SQ AC-TID Insulin Lispro [humaLOG Kwikpen] See Protocol SQ AC-TID hydrOXYzine HCL [Atarax] 50 mg PO QID PRN PRN Reason: Anxiety Insulin Glargine,Hum.rec.anlog [Lantus Solostar Pen] 20 units SQ DAILY Cetirizine HCl 10 mg PO DAILY Atorvastatin Calcium [Lipitor] 40 mg PO HS Discharge Medication List Albuterol Inhaler [Ventolin Hfa Inhaler] 2 puff INHALATION RT-Q4H PRN 03/01/24 [History] Atorvastatin Calcium [Lipitor] 40 mg PO HS 03/01/24 [History] Cetirizine HCl 10 mg PO DAILY 03/01/24 [History] Empagliflozin [Jardiance] 10 mg PO DAILY 03/01/24 [History] Escitalopram [Lexapro] 10 mg PO DAILY 03/01/24 [History] Insulin Glargine,Hum.rec.anlog [Lantus Solostar Pen] 20 units SQ DAILY 03/01/24 [History] Insulin Lispro [humaLOG Kwikpen] 5 unit SQ AC-TID 03/01/24 [History] Insulin Lispro [humaLOG Kwikpen] See Protocol SQ AC-TID 03/01/24 [History] Pantoprazole Sodium [Protonix] 20 mg PO DAILY 03/01/24 [History] hydrOXYzine HCL [Atarax] 50 mg PO QID PRN 03/01/24 [History] metFORMIN HCL 1,000 mg PO BID 03/01/24 [History] traZODone HCL [Desyrel] 100 mg PO HS PRN 03/01/24 [History] Follow up Appointment(s)/Referral(s): Nonstaff,Physician [Primary Care Provider] - 1-2 days Discharge/Stand Alone Forms: Inp Substance Abuse Facilities
[2024-03-03] MEDS ORDERED: CALCIUM CARBONATE 500 MG CHEWABLE PO PRN (10:50)
[2024-03-03 11:45] LABS: Glucose,Whole Blood 179 mg/dL (70-110)
[2024-03-03 13:32] VITALS: BMI 28.3
== END 2024-03-03 14:22 | disposition other institution (70) ==
LOC: EC 15:56 → 3SCARD 19:42 → INTOOBSV 19:42 → 3SCARD 20:47 → UNDODISIN 03-03 14:22
PROVIDERS: ADMIT Internal Medicine; ATTEND Internal Medicine
CPT/HCPCS: 36415; 74174; 74177; 80048; 80053; 80320; 81003; 82150; 83036; 83605; 83690; 85025; 96361; 96372; 96374; 96375; 96376; 99285